=== PATIENT | male | born 1990 | race Caucasian/White ===

== ENCOUNTER → 2017-02-04 | Day surgery (SDC) | payer OTHER ==
[~2017-02-04] VITALS: Ht 175.3 cm; Wt 72.6 kg
[~2017-02-04] MED LIST: 0.9% Sodium Chloride 1,000 ML IV SCH; ALBU18HF INH; ALBU2.5V4 INHALATION; CETI10CA PO; CHOL200047 PO; FLUN25SP NS; FLUT15.88 NS; MOME13HF2 IH; MONT10TA23 PO; RANI150C4 PO; Sodium Chloride LOK Flush 10 mL Syringe IV PRN; fentaNYL-PF 50 mCg/mL 2 mL Inj IVPUSH PRN
[2017-02-04 14:04] VITALS: BP 122/66; PULSE 85; RESP 16; O2SAT 95
[2017-02-04 15:09] VITALS: BP 111/70; PULSE 78; RESP 16; O2SAT 99
[2017-02-04 15:19] VITALS: BP 128/81; PULSE 90; RESP 16; O2SAT 100
--- NOTE | 2017-02-04 17:35 | ENDO ---
[address] [address] ENDOSCOPY PROCEDURE PATIENT: FRANCISCO CORRAL : 1990 MR#: [id number] ADMIT: 02/04/2017 JOB ID: [id number] DATE OF SERVICE: 02/04/2017 PROCEDURE: Esophagogastroduodenoscopy. INDICATION: Gastroesophageal reflux. The patient's ASA classification is 1, Mallampati score is 1. MEDICATIONS: 1. Versed 5 mg. 2. Fentanyl 125 mcg. INSTRUMENT USED: GIF H 190. PROCEDURE DETAILS: After informed consent was obtained, the patient was brought into the GI suite where he was placed on oxygen via nasal cannula and monitored with continuous pulse oximeter, telemetry, and blood pressure monitoring. A time-out was performed and then he was placed in the left lateral decubitus position and medications were administered for sedation. The standard EGD scope was inserted through the bite block and advanced under direct visualization to the second portion of the duodenum without difficulty. FINDINGS: 1. Normal-appearing duodenal bulb, first and second portion. 2. Normal-appearing pylorus, antrum and gastric body. 3. Retroflexed views in the gastric body revealed a normal-appearing cardia and fundus. 4. Multiple random biopsies were obtained throughout the antrum and body of stomach. 5. The GE junction was at approximately 43 cm and appeared regular. Just above the GE junction, the mucosa had an erythematous appearance suggestive of esophagitis. Multiple biopsies were obtained. IMPRESSIONS: Mild esophagitis, otherwise normal exam to second portion of duodenum. RECOMMENDATIONS: 1. Reflux precautions. 2. Continue antacids. 3. Follow up in GI clinic. COMPLICATIONS: None. ESTIMATED BLOOD LOSS: Less than 5 mL.
--- NOTE | 2017-02-10 11:23 | PATH ---
SURGICAL PATHOLOGY Attending Physician:Pancho Macias CASE STATUS: Signed Out PATIENT NAME: FRANCISCO CORRAL PID: [id number] : 1990 DATE COLLECTED:02/04/2017 00:00 SPECIMEN: 1: Gastric, Biopsy 2: Esophagus, Biopsy CLINICAL HISTORY: 1. GASTRIC BX 2. DISTAL ESOPHAGEAL BX FINAL DIAGNOSIS: 1. Gastric Biopsy: Fragments of gastric antral and fundic mucosa, negative for significant inflammation. Negative for evidence of Helicobacter on H&E stain. Negative for intestinal metaplasia. Negative for dysplasia and malignancy. 2. Distal Esophagus Biopsy: Fragments of squamous mucosa and gastric oxyntic-type mucosa. Negative for specialized metaplasia of Bruce's type esophagus. Negative for dysplasia and malignancy. Positive for squamous intraepithelial eosinophils consistent with changes of chronic reflux. ICD10: K21.0 GROSS DESCRIPTION: The specimen is received in two formalin filled containers labeled with the patient's name. 1). The specimen is sublabeled "gastric" and consists of 3 portions of tissue which aggregate to 0.4 x 0.3 x 0.2 CM. The specimen is entirely submitted in cassette 1A. 2). The specimen is sublabeled "distal esophageal" and consists of 3 portions of tissue which aggregate to 0.3 x 0.3 x 0.3 CM. The specimen is entirely submitted in cassette 2A. 02/05/2017 [facility] ICD-9 CODES: CPT CODES: 1: 68849 2: 26315 Electronically Signed Out Scout Major MD [facility] Pathology [facility] [address] [place] [address] Technical component performed at [facility], [address] [place] [address] Ave[address], [address]
== END | disposition home or self-care (01) ==
LOC: END 01:04
PROVIDERS: ATTEND Internal Medicine Gastroenterology
DX: K20.9 Esophagitis, unspecified (principal); K21.9 Gastro-esophageal reflux disease without esophagitis; R19.5 Other fecal abnormalities; F41.9 Anxiety disorder, unspecified; J45.909 Unspecified asthma, uncomplicated; Q63.1 Lobulated, fused and horseshoe kidney
CPT/HCPCS: 43239; G0500; J2250; J3010; J7030